=== PATIENT | female | born 1935 | race Two or more races ===

== ENCOUNTER 2016-11-18 20:51 | Emergency (ER) | payer MEDICARE | END 2016-11-19 00:19 | disposition home or self-care (01) | LOC: D.ER 20:51 | DX: S16.1XXA Strain of muscle, fascia and tendon at neck level, initial encounter (principal); W19.XXXA Unspecified fall, initial encounter; Y93.89 Activity, other specified; Y92.129 Unspecified place in nursing home as the place of occurrence of the external cause; G30.9 Alzheimer's disease, unspecified; F02.80 Dementia in other diseases classified elsewhere, unspecified severity, without behavioral disturbance, psychotic disturbance, mood disturbance, and anxiety; I10 Essential (primary) hypertension ==

== ENCOUNTER 2017-03-19 16:53 | Emergency (ER) | payer MEDICARE ==
[2017-03-19 17:26] LABS: BASOPHILS 0.2 % (0-2); HEMATOCRIT 33.3 % (36.0-48.0); HEMOGLOBIN 10.9 g/dL (12-16); IMMATURE GRANULOCYTES 0.1 % (0-5); MCH 30.8 pg (26.0-34.0); MCHC 32.7 g/dL (31.0-37.0); MCV 94.1 fL (80.0-100.0); MEAN PLATELET VOLUME 8.6 fL (7.4-10.4); MONOCYTES 13.2 % (2-11); NEUTROPHILS 69.5 % (40-80); PLATELET COUNT 279 10x3/uL (130-400); RBC 3.54 10x6/uL (4.00-5.40); RDW 13.4 % (11.5-14.5); WBC 9.3 10x3/uL (4.8-10.8)
[2017-03-19 17:40] LABS: ALBUMIN 2.3 g/dL (3.4-5.0); ALKALINE PHOSPHATASE 107 U/L (46-116); ALT (SGPT) 12 U/L (10-68); BILIRUBIN - TOTAL 0.21 mg/dL (0.2-1.3); CALC OSMOLALITY 280 mosm/kg (275-300); CALCIUM 8.4 mg/dL (8.5-10.1); CARBON DIOXIDE 30.4 mmol/L (21.0-32.0); CHLORIDE - SERUM 105 mmol/L (98-107); CREATININE - SERUM 0.6 mg/dL (0.6-1.3); POTASSIUM - SERUM 4.2 mmol/L (3.5-5.1); PROTEIN - SERUM 6.6 g/dL (6.4-8.2); SODIUM 140 mmol/L (136-145); UREA NITROGEN 19 mg/dL (7-18); eGFR NON AFRICAN AMERICAN > 90 mL/min (90-120)
[2017-03-19 17:49] LABS: GLUCOSE 107 mg/dL (74-106)
[2017-03-19 19:54] LABS: UDS - AMPHET NEGATIVE QUAL (NEGATIVE); UDS - BARB NEGATIVE QUAL (NEGATIVE); UDS - BENZO NEGATIVE QUAL (NEGATIVE); UDS - COCAINE NEGATIVE QUAL (NEGATIVE); UDS - METH NEGATIVE QUAL (NEGATIVE); UDS - OPIATE NEGATIVE QUAL (NEGATIVE); UDS - PCP NEGATIVE QUAL (NEGATIVE); UDS - THC NEGATIVE QUAL (NEGATIVE)
[2017-03-19 20:18] LABS: APPEARANCE CLEAR (CLEAR); BILIRUBIN NEGATIVE (NEGATIVE); COLOR YELLOW (YELLOW); GLUCOSE NEGATIVE (NEGATIVE); KETONE NEGATIVE (NEGATIVE); LEUKOCYTE ESTERASE 1+ (NEGATIVE); NITRITE NEGATIVE (NEGATIVE); PROTEIN NEGATIVE (NEGATIVE); UROBILINOGEN NORMAL (NORMAL)
[2017-03-19 20:20] LABS: AMORPHOUS SEDIMENT <1+ /lpf (NONE SEEN); BACTERIA FEW /hpf (NONE SEEN)
== END 2017-03-19 23:45 | disposition home or self-care (01) ==
LOC: D.ER 16:53
PROVIDERS: Emergency Medicine
DX: R41.82 Altered mental status, unspecified (principal); I48.91 Unspecified atrial fibrillation; I10 Essential (primary) hypertension; F03.90 Unspecified dementia, unspecified severity, without behavioral disturbance, psychotic disturbance, mood disturbance, and anxiety